=== PATIENT | female | born 1935 | race Caucasian/White ===

== ENCOUNTER 2019-10-09 19:18 | Observation (INO) | payer MEDICARE, BC, SELFPAY ==
--- NOTE | ~2019-10-09 | US_ITS ---
EXAMINATION: US pelvic complete w TV DATE: 10/10/2019 12:08 INDICATION: Acute postmenopausal vaginal bleeding. TECHNIQUE: Multiple transabdominal sonographic images of the pelvis were obtained. COMPARISON: CT abdomen and pelvis 08/22/2016 FINDINGS: The uterus measures 5.5 x 2.3 x 3.1 cm. There is a 1.6 cm hypoechoic intramural fibroid. There is no free fluid in the pelvis. The endometrial complex measures 4 mm in thickness. The ovaries are not vis ualized. IMPRESSION: 1. Uterine fibroid. Reviewed, dictated and finalized at location A. IMPRESSION: 1. Uterine fibroid.
--- NOTE | ~2019-10-09 | US_ITS ---
EXAMINATION: US retroperitoneal comp DATE: 10/10/2019 12:08 INDICATION: Pyelonephritis. TECHNIQUE: Multiple ultrasound grayscale images of the kidneys were obtained. COMPARISON: None. FINDINGS: The right kidney measures 10.2 x 4.6 x 5.1 cm. The left kidney measures 11.8 x 5.4 x 5.4 cm. The kidn eys demonstrate normal parenchymal echogenicity. There are cysts in the kidneys measuring up to 5.0 c m on the left. There is no hydronephrosis. The bladder is normal. IMPRESSION: 1. Normal kidney sizes. No hydronephrosis. Reviewed, dictated and finalized at location A.
[2019-10-09 19:25] VITALS: BP 160/92; PULSE 93; RESP 15; TEMP 37.4; O2SAT 95
--- NOTE | 2019-10-09 19:33 | ED.GENADULT ---
HPI - General Adult General Chief complaint: Unspecified Stated complaint: rectal bleeding Mode of arrival: wheelchair Limitations: language barrier History of Present Illness HPI narrative: this 84-year-old was brought in by her family. She has a hx of CVA with expressive aphasia. The family states there was blood on her depends reported by the staff at the [facility]. Don and daughter states she has no history of rectal or vaginal bleeding. Review of the chart shows that she is status post CVA has hyperlipidemia hypertension GERD depression. MD complaint: this 84-year-old Related Data Home Medications Medication Instructions Recorded Confirmed aspirin 81 mg tablet,delayed 81 mg PO DAILY 07/04/19 10/09/19 release docusate sodium 100 mg capsule 100 mg PO DAILY 07/04/19 10/09/19 multivitamin 1 cap PO DAILY 07/04/19 10/09/19 Allergies Allergy/AdvReac Type Severity Reaction Status Date / Time No Known Allergies Allergy Verified 07/04/19 10:42 Review of Systems Review of Systems: Narrative: unable to obtain secondary to expressive aphasia. Family states they have not been in to see her over the last couple of months because of the COVID pandemic. Staff at the [facility] if not reported any problems or new symptoms. [facility] Past Medical History Medical History History of CVA with residual deficit Hyperlipidemia Social History Social History Smoking status: Never smoker Alcohol intake: never Substance use type: does not use Exam Narrative: Exam Narrative: Laying in bed no acute distress. She answers yah to all questions. She follows directions, putting index fingers of the left and the right hand to nose as instructed. Const: General: no acute distress HENMT: Other: Oropharynx is moist without re Eyes: Conjunctivae: conjunctivae normal Neck: Neck: no lymphadenopathy Other: supple Resp: Effort & Inspection: normal respiratory effort Auscultation: clear to auscultation bilaterally Cardio: Rate: regular rate Rhythm: regular rhythm Heart sounds: Murmur heart sound present Other: 2/6 mid systolic murmur GI: GI Palp: Yes Soft to palpation, No Tenderness to palpation present (GI), No Guarding due to palpation present (GI) and No Rigid due to palpation : Other: Dried blood along the labia majorae. Examined in the presence of the nurse. No mass felt in her vagina; no blood on the glove. No perianal blood. Digital rectal exam without masses. No blood on the glove. No palpable abdominal masses Skin: General skin exam: normal color Rashes: no rashes Extrem: General: normal to inspection and no edema Course Vital Signs Vital signs: Vital Signs Temperature 37.4 C 10/09/19 19:25 Pulse Rate 93 10/09/19 19:25 Respiratory Rate 15 10/09/19 19:25 Blood Pressure 160/92 H 10/09/19 19:25 Pulse Oximetry 95 10/09/19 19:25 Temperature 36.7 C 10/10/19 07:33 Pulse Rate 72 10/10/19 07:33 Respiratory Rate 14 10/10/19 07:33 Blood Pressure 154/82 H 10/10/19 07:33 Pulse Oximetry 96 10/10/19 07:33 Medical Decision Making MDM Narrative Medical decision making narrative: Temperature 37.4?., WBC 10.4. Staffing at the assisted care facility is not capable of monitoring patient's status. Family request patient be brought in for observation. Will monitor for any evidence pyelonephritis as well as further bleeding in the vulval rectal area. Vital Signs Vital Signs: Vital Signs Temperature 37.4 C 10/09/19 19:25 Pulse Rate 93 10/09/19 19:25 Respiratory Rate 15 10/09/19 19:25 Blood Pressure 160/92 H 10/09/19 19:25 Pulse Oximetry 95 10/09/19 19:25 Temperature 36.7 C 10/10/19 07:33 Pulse Rate 72 10/10/19 07:33 Respiratory Rate 14 10/10/19 07:33 Blood Pressure 154/82 H 10/10/19 07:33 Pulse Oximetry 96 10/10/19 07:33
[2019-10-09 20:01] LABS: Hematocrit 35.8 % (35.0-42.0); Hemoglobin 11.9 g/dL (11.7-13.8); Mean Corpuscular HGB Conc 33.2 g/dL (32.0-36.0); Mean Corpuscular Hemoglobin 31.2 pg (27.0-31.0); Mean Corpuscular Volume 93.7 fL (78.0-102.0); Mean Platelet Volume 9.2 fl (9.2-11.8); Platelet Count Result 182 K/mm3 (150-420); Red Blood Count 3.82 M/mm3 (4.20-5.40); Red Cell Distribution Width 14.4 % (11.6-14.4)
[2019-10-09 20:15] LABS: Add Urine Microscopic? YES; Appearance Urine Cloudy (Clear); Bilirubin Urine Negative (Negative); Blood Urine 1+ (Negative); Color Urine Straw (Yellow); Glucose Urine UA Negative (Negative); Ketones Urine Negative (Negative); Leukocyte Esterase Ur 3+ LEU/UL (Negative); Nitrate Urine Negative (Negative); Protein Urine Trace (Negative); Urobilinogen Urine 0.2 mg/dL (0.2-1.0)
[2019-10-09 20:19] LABS: Prothrombin Time 10.2 Seconds (9.64-11.0)
[2019-10-09 20:21] LABS: WBC Urine >75 /hpf (0-3)
[2019-10-09 20:21] LABS: Alanine Aminotransferase 26 U/L (14-59); Albumin Level 3.3 g/dL (3.4-5.0); Alkaline Phosphatase 84 U/L (46-116); Aspartate Amino Transferase 18 U/L (15-37); Bilirubin,Total 0.2 mg/dL (0.00-1.00); Blood Urea Nitrogen 29 mg/dL (7-18); Calcium 8.9 mg/dL (8.5-10.1); Carbon Dioxide 31 mmol/L (21-32); Chloride 106 mmol/L (98-108); Estimated Glomerular Filt Rate 50; Glucose 118 mg/dL (70-99); Osmolality Calculated 302 mOsm/kg (285-295); Partial Thromboplastin Time 24.6 SEC (22.3-31.6); Sodium 143 mmol/L (136-145); Total Protein 6.5 g/dL (6.4-8.2)
[2019-10-09 20:22] LABS: Bacteria Urine 3+ /hpf; Mucus Urine None seen /lpf; Squamous Epithelial Cell Urine None seen /hpf (Few); WBC Clumps Urine Present /hpf
[2019-10-09 20:23] LABS: Lactic Acid 1.3 mmol/L (0.4-2.0)
[2019-10-09 20:36] LABS: Occult Blood Negative (Negative)
[2019-10-09 21:00] VITALS: BP 146/83; PULSE 80; O2SAT 94
[2019-10-09 21:30] VITALS: BP 157/81; PULSE 87; TEMP 37.2; O2SAT 94
--- NOTE | 2019-10-09 21:55 | PC.NURSE ---
Patient arrived from ER by stretcher. transfers with assist of 1. Has expressive aphasia from CVA. some weakness noticed on right in side-greater in RLL. oriented to self. Able to drink without assistance. Call light in reach. demonstrated call light use. bed alarm set as precaution.
[2019-10-09] MEDS: ATORVASTATIN 40 MG TABLET PO (22:08)
[2019-10-09 22:13] VITALS: BMI 21.5
[2019-10-09 22:16] VITALS: BP 174/77; PULSE 83; RESP 18; TEMP 36.6; O2SAT 96
--- NOTE | 2019-10-09 22:25 | PC.NURSE ---
Patient continues to have small amount of blood in her depends. Pain level 0 on FLACC.
--- NOTE | 2019-10-09 23:39 | PC.NURSE ---
Patient indicated she had to use the toilet. Small amount of blood present in depends including small blood clot. was able to speak slowly. used wheeled walker and gait belt for ambulation
[2019-10-10] VITALS: BP 137/61; PULSE 66; RESP 16; TEMP 36.6; O2SAT 93
--- NOTE | 2019-10-10 00:29 | PC.NURSE ---
Patient appears to be resting at this time. pain level 0 on FLACC.
--- NOTE | 2019-10-10 01:30 | PC.NURSE ---
Patient standing in hallway. Bed alarm was not sounding. Assisted patient to toilet. Had small BM and voided dark yellow urine. Assisted back to bed. Bed alarm on
--- NOTE | 2019-10-10 02:32 | PC.NURSE ---
Patient in bed. Bed alarm checked. pain 0 on FLACC.
[2019-10-10 04:00] VITALS: BP 130/66; PULSE 66; RESP 14; TEMP 36.5; O2SAT 94
[2019-10-10 06:10] LABS: Basophils Absolute Auto 0.04 K/mm3 (0.00-0.10); Basophils Percent Auto 0.4 % (0.0-1.0); Hematocrit 36.4 % (35.0-42.0); Immature Granulocyte Absolute 0.06 K/mm3 (0.00-0.00); Immature Granulocyte Percent A 0.6 % (0.0-0.0); Lymphocytes Percent Auto 19.2 % (18.0-42.0); Mean Corpuscular Hemoglobin 30.8 pg (27.0-31.0); Mean Corpuscular Volume 93.3 fL (78.0-102.0); Mean Platelet Volume 9.6 fl (9.2-11.8); Monocytes Absolute Auto 0.53 K/mm3 (0.10-0.90); Monocytes Percent Auto 5.1 % (2.0-11.0); Neutrophils Absolute Auto 7.7 K/mm3 (1.7-7.2); Neutrophils Percent Auto 73.7 % (50.0-70.0); Platelet Count Result 179 K/mm3 (150-420); Red Cell Distribution Width 14.2 % (11.6-14.4); White Blood Count 10.4 K/mm3 (4.8-10.8)
[2019-10-10 07:33] VITALS: BP 154/82; PULSE 72; RESP 14; TEMP 36.7; O2SAT 96
[2019-10-10] MEDS: FLUOXETINE HCL 10 MG CAPSULE 20 MG PO (08:11)
[2019-10-10] MEDS: MULTIVITAMINS THERAPEUTIC TAB (*BKC) 1 TABLET PO (08:11)
[2019-10-10] MEDS: ENOXAPARIN 40 MG/0.4 ML SYRINGE SUB-Q (08:11)
[2019-10-10] MEDS: PANTOPRAZOLE 40 MG TABLET PO (08:12)
[2019-10-10] MEDS: ASPIRIN 81 MG ENTERIC TABLET PO (08:13)
[2019-10-10] MEDS: DOCUSATE SODIUM 100 MG CAPSULE PO (08:13)
[2019-10-10 09:44] LABS: Thyroid Stimulating Hormone Reflex 3.37 u/IU/mL (0.36-3.74)
[2019-10-10 12:00] VITALS: BP 136/80; PULSE 72; RESP 14; TEMP 36.6; O2SAT 96
[2019-10-10 12:28] VITALS: BP 136/80; PULSE 72; RESP 14; TEMP 36.6; O2SAT 96
[2019-10-10 12:29] VITALS: BP 139/88; PULSE 78; RESP 18; O2SAT 97
--- NOTE | 2019-10-10 12:36 | PM.IMHP ---
H&P: HPI History of Present Illness Chief complaint: UTI Narrative: Tawana Bocanegra is a 84 year old female brought in to the ER yesterday early evening. The family states that there has been blood on her depends incontinence diapers that was reported by the staff at [facility]. her family denies any history of rectal or vaginal bleeding in the past. When I spoke with her brother Yrn today, he denied Tawana having any past abdominal surgeries or bowel surgeries or hysterectomy or any other abdominal or gynecological surgeries or concerns. She does take an 81 mg of aspirin at home , 40 mg of pantoprazole, as well as 40 mg of atorvastatin. I did examine her Depends myself at the time of my physical examination of the patient. She is having anywhere from 1-4 tbsp of bright red blood VAGINAL output with each Depend change , no clots noted on the 2 depends diapers that I did examine. Since the patient is verbally unable to communicate, and she has been independent in toileting, it is difficult to know when exactly this bleeding started; but since they do assist her with standby help at her daily showers and likely has been recent. I did call her brother Peterson today who is also her POA. He did inform me that a week ago she had fallen on her kitchen floor, the [facility] staff had telephoned him to inform him of fall and said that they had checked her out and everything seemed okay. Her vital signs have been stable since her admission. I have ordered orthostatic blood pressures to be checked. We are checking a CBC and CMP. Her hemoglobin is 12 and her hematocrit is 36, her platelets are 179, her WBC is 10.4 today. There is no visible signs or symptoms that Tawana is having any pain, during my exam with palpation to the pelvic area and the abdominal area, nor with ambulation. no fevers since her admission, no chills, no wounds, no odor vaginally or orally, and no sign or symptom of pain when she is urinating or having a bowel movement. 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 She attempts to answer your questions with yes no responses and with sentences, but the responses are consistently yes with both myself and other staff noticing that she never responds and never seems to shake her head no to our questions. I have witnessed this patient ambulate herself to the bathroom using her walker, and she does pretty well. She is a resident of the [facility], is reportedly independent, uses her walker routinely and appropriately, toilets herself, feed herself after the assisted living staff has cut up the meat, ambulates throughout the hallways there while wearing her mask appropriately, showers and dresses herself independently with standby assistance only, and will get staff to help her if she has any difficulty in her apartment. I did complete a pelvic exam, there was no sign of trauma, no lacerations or small tears or localized bleeding or ulcerations or masses. There was blood of mild amount in her vagina, that did appear to be originating from superior uterus region. The vaginal epithelium was pink in color, appropriately moist, without patchy erythema or petechiae or localized bleeding, no discharge was noted, no redness or dry patches noted. There was pubic hair present but scarce in nature. There was no cyst, no polyps, no fibroids, no ulcerations noted with my exam. Awaiting the results of her abdominal as well as transvaginal pelvic ultrasounds. Review of Systems Review of Systems: All systems reviewed & are unremarkable except as noted in HPI and below ROS unobtainable: Yes unobtainable due to medical condition Constitutional: Constitutional: Reports as per HPI Eyes: Eyes: Reports as per HPI ENT: Reports as per HPI, Reports Edith
[2019-10-10] MEDS: CIPROFLOXACIN 500 MG TAB PO (14:27)
--- NOTE | 2019-10-10 14:54 | PM.DS ---
DS: Discharge Diagnosis Discharge Diagnosis (1) PMB (postmenopausal bleeding): Code(s): N95.0 - Postmenopausal bleeding Status: Acute Assessment and Plan: PostMenopausal Bleeding (PMB) (unexpected vaginal or uterine bleeding) Differential diagnoses includes: endometrial carcinoma, atrophy of the vaginal mucosa or endometrium, endometrial hyperplasia, polyps, fibroids, uterine tumors, ovarian or fallopian tube cancer, cervical or vaginal cancer. Today's US pelvic complete w TV shows the uterus measures 5.5 x 2.3 x 3.1 cm. There is a 1.6 cm hypoechoic intramural uterine fibroid. There is no free fluid in the pelvis. The endometrial complex measures 4 mm in thickness. The ovaries are not visualized. - she is not complaining of any pain nor does she appear to have any pain signs or symptoms. - Her bleeding is mild in nature and does not appear to be affecting her hemodynamics. Her vital signs are stable including her blood pressures and heart rate, her hemoglobin and hematocrit remained stable, she is not weak but is able to get around very easily. - I recommend an OBGYN Eval. consultation and examination on an outpatient basis, to be completed in the next 1 to 10 days to decide on her best treatment options. - An endometrial biopsy may be recommended due to persistent bleeding and the fact that her endometrial lining is 4 mm in thickness - she should follow advise of her PRINCIPAL ADMINISTRATIVE CLERK. - Cervical cancer screening and PAP may also be recommended due to her retaining her cervix and uterus combined with her significant aphasia and inability to communicate any concerns to providers- she should follow advise of her PRINCIPAL ADMINISTRATIVE CLERK. - stable Hgb/Hct/Platelets, stable BP and HR, minimal to mild mild bleeding less than 1 tablespoon on each Depends today. (2) CVA, old, aphasia: Code(s): I69.320 - Aphasia following cerebral infarction Status: Acute Assessment and Plan: CVA with Expressive aphasia History -contniue DME use -continue exercises and therapies at home -continue getting assistance when needed -use shower chair -continue hands on assistance with toileting/dressing/bathing/cutting up foods - Continue home medications including 81 mg aspirin, 40 mg at tore of a statin, Colace, pantoprazole, multivitamin, fluoxetine -doing well and maintaining quite a bit of her independence at her assisted living facility (3) Urinary tract infection: Qualifiers: Hematuria presence: with hematuria Urinary tract infection type: site unspecified Qualified Code(s): N39.0 - Urinary tract infection, site not specified; R31.9 - Hematuria, unspecified Code(s): N39.0 - Urinary tract infection, site not specified Status: Acute Assessment and Plan: UA 3+ bacteria, 3+leuk, 1+ blood. urine and blood cultures pending. recevied IV rocephin In the ER yesterday evening her ultrasound shows no sign of pyelo or hydronephrosis will treat her for an uncomplicated UTI discharge on oral antibiotic, started her oral dose of Cipro this afternoon, will continue it for the next 2 days for total of 4 days of antibiotics, 3 of which include Cipro she will follow-up with her PCP 1 week from today I have instructed her to get blood and urine culture results from her PCP office DS: Summary Time Spent with Patient Time attestation: Total time spent providing and/or coordinating discharge services:>90 min Exam Narrative: Exam Narrative: Laying in bed no acute distress. She answers yah to all questions. She follows directions, putting index fingers of the left and the right hand to nose as instructed. Const: General: comfortable and no acute distress; No confusion or patient obtunded Orientation/consciousness: oriented to person, oriented to place, No confusion and No patient obtunded HENMT: General nose exam: Normal nares present and no epistaxis Mouth: Yes moist mucous membranes Other: Oropharynx is moist without re E
--- NOTE | 2019-10-10 15:48 | PC.NURSE ---
Family here to transport patient back to [facility] via family car. Patient assisted into car without difficulty. Discharge information reviewed with son. Son states understanding.
--- NOTE | 2019-10-10 22:34 | PM.EVENT ---
Event Note Event Note Event Note: Patient appears comfortable. Unable to give significant history. Mucous membranes are moist, regular rate rhythm without murmur rub or gallop. Lungs are clear to auscultation bilaterally. Abdomen is soft nontender. Extremities are warm dry pink with symmetric pulses. Discharge on oral antibiotics for UTI and OB Gyne follow-up to address vaginal bleeding issue. I have examined the patient and reviewed the chart. I discussed the patient's care with A Daniel SANTIAGO and agree with her assessment plan.
[2019-10-13 06:41] LABS: LH 38.9 mIU/mL (***); Progesterone <0.2 ng/mL (***)
[2019-10-14 04:51] LABS: FSH 97.6 mIU/mL (***)
[2019-10-14 21:16] LABS: Estrogen 103.1 pg/mL
== END 2019-10-10 15:40 ==
LOC: CHSED 19:22 → CHS2ND 21:19
PROVIDERS: Nurse Practitioner; Admitting Provider Family Medicine; Emergency Provider Family Medicine; PCP Family Medicine; Visit Provider Family Medicine
DX: N95.0 Postmenopausal bleeding (principal); D25.1 Intramural leiomyoma of uterus; N39.0 Urinary tract infection, site not specified; I69.320 Aphasia following cerebral infarction; I69.351 Hemiplegia and hemiparesis following cerebral infarction affecting right dominant side; I10 Essential (primary) hypertension; E78.5 Hyperlipidemia, unspecified; K21.9 Gastro-esophageal reflux disease without esophagitis; F32.9 Major depressive disorder, single episode, unspecified
CPT/HCPCS: 36415; 76770; 76830; 76856; 80053; 81001; 82272; 82672; 83001; 83002; 83605; 84144; 84443; 85025; 85027; 85610; 85730; 87040; 87086; 96365; 96372; 97161; 97165; 99283; 99285; A9270; G0378; J0696; J1650

== ENCOUNTER 2020-11-06 17:47 | Emergency (ER) | payer MEDICARE, BC, SELFPAY ==
[2020-11-06] VITALS (10 sets, daily range): BP systolic 163–174; BP diastolic 70–80; PULSE 65–75; RESP 14–20; TEMP 36.5; O2SAT 96–100
--- NOTE | ~2020-11-06 | CT_ITS ---
EXAMINATION: CT cervical spine wo con EXAM DATE: 11/06/2020 19:14 INDICATION: Fall, head injury. On blood thinners. TECHNIQUE: Spiral CT of the cervical spine was performed without contrast. Axial images were reviewe d. Coronal and sagittal reformatted images cervical spine were also reviewed. The dose-length produc t (DLP) for this examination was 106.29 mGy-cm. The exposure was tailored according to patient size (auto mA exposure control), and iterative reconstruction (ASIR) was used as additional dose reduction technique. Comparison is made to prior examination from 08/22/2016. FINDINGS: There is no evidence of acute cervical fracture. The odontoid process is intact. Pre-dens space is normal. Prevertebral soft tissue is normal. There are no soft tissue abnormalities identi fied. There is no disc space widening or traumatic vertebral body subluxation suspected. There is o sseous fusion of the C6-T1 vertebral bodies, severe disc disease at C5-6. Some advanced arthropathy. A detailed level by level evaluation of spondylosis can be added as addendum if requested. 1. IMPRESSION: Spondylosis. No acute cervical findings. Reviewed, dictated and finalized at location A.
--- NOTE | ~2020-11-06 | XR_ITS ---
EXAMINATION: XR knee RT min 4V EXAM DATE: 11/06/2020 18:56 INDICATION: Fall, abrasions. TECHNIQUE: Right knee frontal, crosstable lateral, orthogonal oblique projections for interpretation . Comparison is made to prior examination from 03/01/2019. FINDINGS: There are no acute fractures or dislocations identified. There is no subcutaneous gas. Mi ld vascular calcifications, arteriosclerosis. There are no radiopaque foreign bodies. IMPRESSION: 1. XR knee RT min 4V exam without acute osseous findings. Reviewed, dictated and finalized at location A.
--- NOTE | ~2020-11-06 | XR_ITS ---
EXAMINATION: XR hip RT 2V w AP pelvis EXAM DATE: 11/06/2020 18:56 INDICATION: Fall, abrasions. History stroke. TECHNIQUE: Right hip frontal, crosstable lateral projections for interpretation. Frontal projection p kezia. Comparison is made to prior examination from 03/01/2019. FINDINGS: There is right hip replacement hardware in expected position. No osseous or hardware fractu re. Scattered vascular calcifications. The pelvis is intact. Mild left hip primary osteoarthritis. IMPRESSION: 1. Intact right hip arthroplasty. Reviewed, dictated and finalized at location A.
--- NOTE | ~2020-11-06 | XR_ITS ---
EXAMINATION: XR ankle RT min 3V EXAM DATE: 11/06/2020 18:57 INDICATION: GLF, History of stroke. Right ankle pain. TECHNIQUE: Right ankle frontal, lateral and oblique projections obtained and reviewed. Comparison is made to prior examination from 12/01/2016. FINDINGS: Previously seen right fibular intra-articular fracture has healed. There are no acute / fra ctures or dislocations identified. There is no subcutaneous gas. The soft tissue is unremarkable. There are no radiopaque foreign bodies. IMPRESSION: No acute osseous findings. Reviewed, dictated and finalized at location A. IMPRESSION: No acute osseous findings.
--- NOTE | ~2020-11-06 | CT_ITS ---
EXAMINATION: CT brain wo [facility] EXAM DATE: 11/06/2020 19:14 INDICATION: Fall, head injury. On blood thinners. TECHNIQUE: Spiral CT of the head was performed without contrast. Axial, coronal and sagittal images were reviewed. The dose-length product (DLP) for this examination was 106.29 mGy-cm. The exposure w as tailored according to patient size, and iterative reconstruction (ASIR) was used as additional dos e reduction technique. Comparison is made to prior examination from 03/01/2019. FINDINGS: There is large left hemispheric cerebral infarction unchanged compared to prior study. Some ex vacuo dilation of the left lateral ventricle. There is an old right thalamic lacunar infarction, but new compared to previous examination. There is moderate microangiopathy. There is a 1 cm meningio ma along the left side of the tentorium unchanged. There is moderate cerebral atrophy. Several small old bilateral cerebellar hemispheric infarctions. No acute intracranial hemorrhage, obstructive hydro cephalus or brain mass. IMPRESSION: 1. No acute intracranial findings. 2. Old infarctions. 3. Senescent changes. 4. Small meningioma. Reviewed, dictated and finalized at location A.
--- NOTE | 2020-11-06 19:16 | ED.FALL ---
HPI - Fall General Chief Complaint: Fall Stated Complaint: FALL KNEE,ANKLE PAIN Source: EMS and RN notes reviewed Mode of arrival: EMS Limitations: physical limitation (aphasic from cva) and dementia History of Present Illness HPI Narrative: This is an 85 year old female with history of dementia who presents from longterm for evaluation of right knee and ankle pain s/p fall. Patient has dementia and she is unable to give history. According to longterm, patient was able to stand without any complaints. She does have sign of head injury but it has been reported that she is on a blood thinner. Related Data Home Medications Medication Instructions Recorded Confirmed aspirin 81 mg tablet,delayed 81 mg PO DAILY 07/04/19 10/14/19 release docusate sodium 100 mg capsule 100 mg PO DAILY 07/04/19 10/14/19 multivitamin 1 cap PO DAILY 07/04/19 10/14/19 Allergies Allergy/AdvReac Type Severity Reaction Status Date / Time No Known Allergies Allergy Verified 10/14/19 13:01 Review of Systems Review of Systems: ROS unobtainable: Yes other (dementia) [facility] Past Medical History Medical History (Updated 11/06/20 @ 19:37 by Katie Frazier MD) History of CVA with residual deficit Hyperlipidemia Family History Family History Other Cerebrovascular accident Social History Social History Smoking status: Never smoker Alcohol intake: never Substance use type: does not use Exam Const: General: no acute distress and alert HENMT: Head: normocephalic and atraumatic Mouth: Yes Normal oral and palatal mucosa present, Yes lip normal, Yes oropharynx normal and Yes moist mucous membranes Throat: posterior oropharynx normal, tonsils normal and uvula midline Eyes: EOM: EOMs intact bilaterally Chest: Chest palpation & inspection: normal inspection of the chest Resp: Effort & Inspection: normal respiratory effort and no retractions Auscultation: clear to auscultation bilaterally Cardio: Rate: regular rate Rhythm: regular rhythm Heart sounds: no murmurs GI: GI Palp: Yes Soft to palpation, No Tenderness to palpation present (GI) and No Guarding due to palpation present (GI) Auscultation: normal bowel sounds Skin: Other: abrasion to right knee and right ankle, no swelling or deformity Neuro: Other: no grimacing or sign of pain with movement of her legs, Course Reevaluation(s) Reevaluation #1: PAtient's family is at bedside. I reviewed ER course. No other concerns. Patient will be discharged back to [facility] Date: 11/06/20 Time: 19:35 Vital Signs Vital signs: Vital Signs Temperature 97.7 F 11/06/20 17:47 Pulse Rate 75 11/06/20 17:47 Respiratory Rate 14 11/06/20 17:47 Pulse Oximetry 96 11/06/20 17:47 Temperature 97.7 F 11/06/20 17:47 Pulse Rate 69 11/06/20 19:57 Respiratory Rate 16 11/06/20 19:57 Blood Pressure 174/80 H 11/06/20 19:57 Pulse Oximetry 97 11/06/20 19:57 MDM - Fall Imaging Data Radiologist's impression: ITS Impressions Hip/Pelvis X-Ray 11/06/20 19:02 IMPRESSION: 1. Intact right hip arthroplasty. Knee X-Ray 11/06/20 19:05 IMPRESSION: 1. XR knee RT min 4V exam without acute osseous findings. Ankle X-Ray 11/06/20 19:12 IMPRESSION: No acute osseous findings. Head CT 11/06/20 19:20 IMPRESSION: 1. No acute intracranial findings. 2. Old infarctions. 3. Senescent changes. 4. Small meningioma. Discharge Plan Discharge Clinical Impression: Abrasion of knee, right, Abrasion of ankle, right Patient Disposition: [facility] Living Condition: Stable Instructions: Antibiotic Form, Contusion in Adults (ED), Abrasion (ED) Prescriptions: No Action ciprofloxacin HCl 500 mg Tablet 500 mg PO DAILY 2 Days Qty: 2 RF: 0 multivitamin Capsul
--- NOTE | 2020-11-06 19:57 | PC.NURSE ---
made contact with [facility] and [facility] to transfer pt to [facility] in [place]. [facility] and [facility] both declined. [facility] accepted with eta 2030
--- NOTE | 2020-11-06 20:23 | PC.NURSE ---
hussain has arrived and is aware that she is going to [facility]
== END 2020-11-06 20:34 ==
PROVIDERS: Emergency Provider General Practice
DX: S80.211A Abrasion, right knee, initial encounter (principal); S90.511A Abrasion, right ankle, initial encounter; F03.90 Unspecified dementia, unspecified severity, without behavioral disturbance, psychotic disturbance, mood disturbance, and anxiety; Z79.82 Long term (current) use of aspirin; E78.5 Hyperlipidemia, unspecified; Z96.641 Presence of right artificial hip joint; D32.0 Benign neoplasm of cerebral meninges; M47.812 Spondylosis without myelopathy or radiculopathy, cervical region
CPT/HCPCS: 70450; 72125; 73502; 73564; 73610; 99284

== ENCOUNTER 2021-01-03 12:24 | Emergency (ER) | payer MEDICARE, BC, SELFPAY ==
[2021-01-03] VITALS (20 sets, daily range): BP systolic 129–178; BP diastolic 68–88; PULSE 66–82; RESP 13–21; TEMP 36.9; O2SAT 96–99
--- NOTE | ~2021-01-03 | XR_ITS ---
EXAMINATION: XR hip RT min 3V w AP pelvis DATE: 01/03/2021 12:59 INDICATION: Right hip pain. Fall. TECHNIQUE: An anteroposterior view of the pelvis and 3 views of right hip were obtained. COMPARISON: Pelvis and right hip radiographs 11/06/2020 FINDINGS: There is a bipolar right hip hemiarthroplasty in near-anatomic alignment. No lucencies to s uggest loosening or infection. There is a periprosthetic fracture of greater trochanter of proximal r ight femur. The distal fracture fragment demonstrates 6 mm medial displacement. There is mild left hi p osteoarthritis. There is severe lumbar spondylosis. IMPRESSION: 1. Periprosthetic fracture of proximal right femur involving the greater trochanter. Reviewed, dictated and finalized at location A. IMPRESSION: 1. Periprosthetic fracture of proximal right femur involving the greater trocha nter.
--- NOTE | ~2021-01-03 | XR_ITS ---
EXAMINATION: XR chest 1V EXAM DATE: 01/03/2021 12:59 INDICATION: Recent fall. TECHNIQUE: Portable AP frontal chest x-ray was obtained. There is no prior study for comparison. FINDINGS: There is large sliding gastroesophageal hiatal hernia. No confluent consolidation, pneumoth orax or pleural effusion suspected. Cardiomegaly. Some scattered postinfectious residua. There are dwaine ny degenerative changes. IMPRESSION: 1. No acute cardiopulmonary findings. 2. Cardiomegaly. 3. Large hiatal hernia. Reviewed, dictated and finalized at location A.
--- NOTE | ~2021-01-03 | CT_ITS ---
EXAMINATION: CT brain wo con DATE: 01/03/2021 14:22 INDICATION: Fall. Patient nonverbal. TECHNIQUE: Computed tomography (CT) of the head was performed without intravenous contrast. Sagittal and coronal reconstructions were performed. The mA was adjusted according to patient size. Iterative reconstruction technique was employed. The dose-length product was 681.00 mGy-cm. COMPARISON: head CT dated 11/06/2020 FINDINGS: No fracture. No acute intracranial hemorrhage, acute infarction or abnormal extra axial fluid collect ion. Chronic large infarct involving significant portions of the left cerebral hemisphere relatively sparing the left temporal lobe. Small old lacunar infarcts at the right thalamus and bilateral cerebe llar hemispheres. There is additional moderate scattered white matter hypoattenuation consistent with chronic small vessel ischemic disease. No interval change in a dural based 11 x 7 x 4 mm lenticular hyperdense meningioma along the caudal aspect of the left side of the tentorium. No other masses iden tified. Symmetric prominence of the sulci and ventricles consistent with moderate likely age-related diffuse cerebral volume loss. The orbits, paranasal sinuses and mastoid air cells are normal. Intracr anial calcified cerebral atherosclerosis is noted. IMPRESSION: 1. No fracture or acute intracranial process. 2. Stable appearance of old infarcts which involve large portions of the left cerebellar hemisphere. 3. Unchanged small meningioma along the left tentorium. 4. Age-related changes including moderate diffuse volume loss and moderate scattered white matter hyp oattenuation consistent with chronic small vessel ischemic disease. Reviewed, dictated and finalized at location B. IMPRESSION: 1. No fracture or acute intracranial process. 2. Stable appearance of old infarcts which involve large portions of the left c erebellar hemisphere. 3. Unchanged small meningioma along the left tentorium. 4. Age-related changes including moderate diffuse volume loss and moderate scat tered white matter hypoattenuation consistent with chronic small vessel ischemi c disease.
--- NOTE | ~2021-01-03 | CT_ITS ---
EXAMINATION: CT cervical spine wo [facility] EXAM DATE: 01/03/2021 14:22 INDICATION: Fall, nonverbal. TECHNIQUE: Spiral CT of the cervical spine was performed without contrast. Axial images were reviewe d. Coronal and sagittal reformatted images cervical spine were also reviewed. The dose-length produc t (DLP) for this examination was 144.08 mGy-cm. The exposure was tailored according to patient size (auto mA exposure control), and iterative reconstruction (ASIR) was used as additional dose reduction technique. Comparison is made to prior examination from 08/22/2016. FINDINGS: There is old left occipital lobe infarction. There is no evidence of acute cervical fractu re. The odontoid process is intact. Pre-dens space is normal. Prevertebral soft tissue is normal. There are no soft tissue abnormalities identified. There is no disc space widening or traumatic ming tebral body subluxation suspected. Osseous fusion of the C6-T1 vertebral bodies. Moderate to severe disc disease at C5-6. Left thyroid lobectomy. A detailed level by level evaluation of spondylosis ca n be added as addendum if requested. IMPRESSION: 1. No acute cervical fracture. 2. Cervical spondylosis. Reviewed, dictated and finalized at location A.
--- NOTE | 2021-01-03 12:27 | ECG_ITS ---
Measurements Intervals [place] Rate: 72 P: 20 NH: 161 QRS: -1 QRSD: 104 T: 16 QT: 388 QTc: 425 Interpretive Statements SINUS RHYTHM INCOMPLETE RIGHT BUNDLE BRANCH BLOCK BASELINE ARTIFACT- I, II, AVR, AVL, V5 BORDERLINE ECG Electronically Signed On 01-03-2021 13:38:17 CDT by Jonathan Schmidt D.O.
[2021-01-03 13:29] LABS: Basophils Percent Auto 0.4 % (0.2-1.2); Eosinophils Absolute Auto 0.1 K/mm3 (0-0.3); Eosinophils Percent Auto 0.9 % (0-4.4); Hematocrit 37.1 % (37.0-47.0); Hemoglobin 11.8 g/dL (12.0-15.0); Immature Granulocyte Absolute 0.03 K/mm3 (0.00-0.031); Immature Granulocyte Percent A 0.3 % (0-0.5); Lymphocytes Percent Auto 15.2 % (18.3-44.2); Mean Corpuscular HGB Conc 31.8 g/dl (32-36); Mean Corpuscular Hemoglobin 29.8 pg (26-34); Mean Corpuscular Volume 93.7 fl (80-100); Mean Platelet Volume 9.1 fl (7.4-10.4); Monocytes Absolute Auto 0.4 K/mm3 (0.1-0.6); Monocytes Percent Auto 4.5 % (2.6-8.5); Neutrophils Absolute Auto 7.8 K/mm3 (1.3-6.7); Neutrophils Percent Auto 78.7 % (45.5-73.1); Platelet Count Result 247 k/mm3 (150-375); Red Blood Count 3.96 M/mm3 (4.2-5.4); Red Cell Distribution Width 13.8 % (11.5-14.5); White Blood Count 9.9 K/mm3 (4.5-10.0)
[2021-01-03 13:39] LABS: Prothrombin Time 13.1 Seconds (11.1-14.7)
[2021-01-03 13:47] LABS: Alanine Aminotransferase 16 U/L (4-35); Albumin Level 3.4 g/dL (3.5-5.1); Alkaline Phosphatase 234 U/L (38-126); Anion Gap 6 mmol/L (8-16); Aspartate Amino Transferase 24 U/L (14-36); Bilirubin,Total 0.5 mg/dL (0.2-1.3); Blood Urea Nitrogen 17 mg/dL (7-17); Calcium 8.7 mg/dL (8.4-10.2); Carbon Dioxide 27 mmol/L (22-30); Chloride 103 mmol/L (98-107); Estimated CRCL calculation 44 ml/min; Estimated Glomerular Filt Rate > 60; Glucose 113 mg/dL (65-110); Potassium 3.8 mmol/L (3.4-5.0); Sodium 136 mmol/L (137-145)
--- NOTE | 2021-01-03 14:00 | ED.GENADULT ---
HPI - General Adult General Chief complaint: Unspecified Stated complaint: FALL / HIP FRACTURE Time Seen by Provider: 01/03/21 12:27 Source: family, EMS and RN notes reviewed Mode of arrival: EMS Limitations: dementia History of Present Illness HPI narrative: Patient is 85 years old white female brought to the emergency room by ambulance from retirement because of possible right hip fracture. Patient brother is telling me that patient been having trouble walking for 1 week, history of multiple falls. The staff noticed right foot swelling lately, been seen by a data reduction technician yesterday for right foot swelling, without any significant diagnosis. X-ray right hip yesterday showed fracture. History of dementia, patient is nonverbal, normally uses a walker, over the last week been bedridden.. The retirement report indicated that patient have no fever, chills, nausea, vomiting, chest pain, shortness of breath, back pain. Patient just transferred to a retirement 1 week ago Related Data Home Medications Medication Instructions Recorded Confirmed aspirin 81 mg tablet,delayed 81 mg PO DAILY 07/04/19 01/03/21 release multivitamin 1 cap PO DAILY 07/04/19 01/03/21 acetaminophen 500 mg PO QID PRN 01/03/21 01/03/21 Allergies Allergy/AdvReac Type Severity Reaction Status Date / Time No Known Allergies Allergy Verified 10/14/19 13:01 Review of Systems Review of Systems: ROS unobtainable: Yes unobtainable due to mental status PMFSH Past Medical History Medical History (Updated 01/03/21 @ 15:51 by Jennifer Grimaldo MD) History of CVA with residual deficit Hyperlipidemia Family History Family History Other Cerebrovascular accident Social History Social History Smoking status: Never smoker Alcohol intake: never Substance use type: does not use Gender identity (if verbalized by the patient): Female Exam Narrative: General appearance: Well-developed, well-nourished, laying down in bed does not look in pain or distress, brother at the bedside Skin: Normal color Head: Normocephalic, nontraumatic Eyes: Clear conjunctiva ENT: Oropharynx normal, ears normal, nose normal Neck: Supple, nontender Chest and respiratory: Airway patent, no respiratory distress, no accessory muscle use Heart: Regular rate/rhythm Abdomen: Soft, nontender, no organomegaly, quiet bowel sounds Vascular: Normal peripheral pulses, normal capillary refill. Musculoskeletal: Limited range of motion of right hip Neurologic: Patient is alert, disoriented x4 Course Course Emergency Course: Stable Consultations Consultation #1: Dr. Harrington No weightbearing on the right lower extremity, wheelchair for movement, Date: 01/03/21 Time: 14:22 Vital Signs Vital signs: Vital Signs Blood Pressure 152/83 H 01/03/21 12:31 Pulse Oximetry 99 01/03/21 12:31 Temperature 36.9 C 01/03/21 12:36 Pulse Rate 69 01/03/21 14:34 Respiratory Rate 17 01/03/21 14:34 Blood Pressure 139/84 01/03/21 13:00 Pulse Oximetry 99 01/03/21 13:30 Medical Decision Making MDM Narrative Medical decision making narrative: Right hip x-ray showed greater trochanteric fracture which is inoperable, discussed with Dr. Harrington. Patient will be discharged back to retirement to follow-up with Ortho as outpatient. Differential Diagnosis Differential Diagnosis: Closed head injury, cervical fracture, electrolyte imbalance, urinary tract infection, history of multiple falls Vital Signs Vital Signs: Vital Signs Blood Pressure 152/83 H 01/03/21 12:31 Pulse Oximetry 99 01/03/21
--- NOTE | 2021-01-03 16:24 | PC.NURSE ---
[facility] accepted retrun ETA20p Trip # [id number] Galileo Peralta and Erwin Valdivia declined return to [facility]
--- NOTE | 2021-01-03 18:04 | PC.NURSE ---
SPOKE TO [facility] AND INFORMED OF DEPT, ALSO MADE AWARE THAT XRAY REPORT INCLUDED IN DC PAPERWORK
== END 2021-01-03 18:06 ==
PROVIDERS: Emergency Provider Emergency Medicine; PCP Nurse Practitioner Family
DX: S72.114A Nondisplaced fracture of greater trochanter of right femur, initial encounter for closed fracture (principal); M97.01XA Periprosthetic fracture around internal prosthetic right hip joint, initial encounter; R29.6 Repeated falls; I51.7 Cardiomegaly; K44.9 Diaphragmatic hernia without obstruction or gangrene; M47.812 Spondylosis without myelopathy or radiculopathy, cervical region; Z79.82 Long term (current) use of aspirin; E78.5 Hyperlipidemia, unspecified; I69.90 Unspecified sequelae of unspecified cerebrovascular disease; W19.XXXA Unspecified fall, initial encounter
CPT/HCPCS: 36415; 70450; 71045; 72125; 73502; 80053; 85025; 85610; 85730; 86850; 86900; 86901; 93005; 96365; 96366; 99284; J0696

== ENCOUNTER 2021-03-01 16:31 | Emergency (ER) | payer MEDICARE, BC, SELFPAY ==
--- NOTE | ~2021-03-01 | XR_ITS ---
EXAMINATION: XR hip RT 2V w AP pelvis INDICATION: Right hip pain TECHNIQUE: AP view the pelvis and two views of the right hip are obtained. COMPARISON: 01/03/2021 FINDINGS: There are changes of right hip arthroplasty. No acute fracture is identified. There appears to be healing of the previously described periprosthetic fracture of the right femur involving the g reater trochanter. There is moderate osteoarthritis of the left hip. Calcified atherosclerosis is not ed. There are phleboliths of the pelvis. IMPRESSION: 1. Apparent interval healing of the previously described periprosthetic fracture of the right femur w ithout acute osseous abnormality identified. Reviewed, dictated and finalized at location A. IMPRESSION: 1. Apparent interval healing of the previously described periprosthetic fractur e of the right femur without acute osseous abnormality identified.
--- NOTE | ~2021-03-01 | CT_ITS ---
EXAMINATION: CT brain wo con INDICATION: Head injury COMPARISON: 01/03/2021 TECHNIQUE: Standard unenhanced head CT. The dose-length product (DLP) was 605.33 mGy-cm. The mA was a djusted according to patient size. Iterative reconstruction technique was employed. FINDINGS: There is no acute intraparenchymal hemorrhage. No a stable meningioma is again noted along the left tentorium. No evidence of acute infarction. There is chronic encephalomalacia in the distrib ution of the left middle cerebral artery. There is mild periventricular and subcortical hypodensity p robably related to small vessel ischemic disease. There is mild prominence of the sulci and ventricle s related to cerebral atrophy. Intracranial calcified cerebral atherosclerosis is noted. There are no extra-axial collections. There is no mass effect or midline shift. There is a right frontal scalp he matoma. There is mild mucosal thickening of the paranasal sinuses. IMPRESSION: 1. No acute intracranial abnormality. 2. Chronic findings as above. Reviewed, dictated and finalized at location A.
[2021-03-01 16:37] VITALS: BP 182/75; PULSE 78; RESP 18; TEMP 37.1; O2SAT 97
--- NOTE | 2021-03-01 17:18 | ED.FALL ---
HPI - Fall General Chief Complaint: Fall Stated Complaint: fall Time Seen by Provider: 03/01/21 16:58 Source: patient Mode of arrival: ambulatory Limitations: no limitations History of Present Illness HPI Narrative: Patient is an 85-year-old female sent here from residential after a ground-level fall. Per EMS patient did hit her head and her right hip. Patient has severe dementia, nonverbal, very poor historian Related Data Home Medications Medication Instructions Recorded Confirmed aspirin 81 mg tablet,delayed 81 mg PO DAILY 07/04/19 01/03/21 release multivitamin 1 cap PO DAILY 07/04/19 01/03/21 acetaminophen 500 mg PO QID PRN 01/03/21 01/03/21 Allergies Allergy/AdvReac Type Severity Reaction Status Date / Time No Known Allergies Allergy Verified 10/14/19 13:01 Review of Systems Review of Systems: ROS unobtainable: Yes unobtainable due to mental status and other (Dementia) [facility] Past Medical History Medical History (Updated 03/01/21 @ 18:31 by Marcus Carey MD) History of CVA with residual deficit Hyperlipidemia Family History Family History Other Cerebrovascular accident Social History Social History Smoking status: Never smoker Alcohol intake: never Substance use type: does not use Gender identity (if verbalized by the patient): Female Exam Const: General: no acute distress and alert Limitations: other limitations (Dementia, nonverbal) HENMT: Head: normal to inspection, normocephalic and atraumatic Ears: TM normal on the right and TM normal on the left General nose exam: Normal external nose present, Normal nares present and No nasal discharge present Face and sinus: normal facial exam Mouth: Yes Normal oral and palatal mucosa present, Yes lip normal, Yes tongue normal and Yes oropharynx normal Eyes: General: appearance normal, both eyes and all related structures Pupils: Equal, round and reactive pupils present EOM: EOMs intact bilaterally Neck: Neck: normal visual inspection Chest: Chest palpation & inspection: normal inspection of the chest Resp: Effort & Inspection: normal respiratory effort, no respiratory distress and not tachypneic Auscultation: clear to auscultation bilaterally, no crackles, no rales, no rhonchi and no wheezes Cardio: Rate: regular rate Rhythm: regular rhythm GI: Inspection: normal to inspection GI Palp: No abdominal tenderness, Yes Soft to palpation, No Tenderness to palpation present (GI), No Guarding due to palpation present (GI), No Rigid due to palpation and No Rebound tenderness present Auscultation: normal bowel sounds : General: Yes no CVA tenderness Back/Spine/Pelvis: Back: no CVA tenderness Skin: General skin exam: normal color, no rashes or lesions noted, elasticity normal and turgor normal Neuro: General: tone normal and moves all extremities Sensory Exam: No Sensory deficit (Neuro) Extrem: General: normal to inspection and capillary refill normal Psych: Appearance: grossly normal and well kempt Course Vital Signs Vital signs: Vital Signs Temperature 37.1 C 03/01/21 16:37 Pulse Rate 78 03/01/21 16:37 Respiratory Rate 18 03/01/21 16:37 Blood Pressure 182/75 H 03/01/21 16:37 Pulse Oximetry 97 03/01/21 16:37 Temperature 37.1 C 03/01/21 16:37 Pulse Rate 78 03/01/21 16:37 Respiratory Rate 18 03/01/21 16:37 Blood Pressure 182/75 H 03/01/21 16:37 Pulse Oximetry 97 03/01/21 16:37 Discharge Plan Discharge Clinical Impression: Fall in elderly patient Head injury Qualifiers: Encounter type: initial encounter Qualified Code(s): S09.90XA - Unspecified injury of head, initial encounter Contusion of hip, right Qualifiers: Encounter type: initial encounter Qualified Code(s): S70.01XA - Contusion of right hip, initial encounter Patient Disposition: NH Care Home/As
[2021-03-01 18:31] VITALS: BP 153/66; PULSE 67; RESP 18; O2SAT 97
[2021-03-01 19:39] VITALS: BP 162/67; PULSE 67; RESP 16; O2SAT 95
--- NOTE | 2021-03-01 19:58 | PC.NURSE ---
@194 called [facility] to request transport. ETA [phone] @1941 called [facility] to request transport. declined.
--- NOTE | 2021-03-01 20:00 | PC.NURSE ---
@ 1943 called [facility] to request transport. accepted @ 1956 cancelled Only EMS.
== END 2021-03-01 20:37 ==
LOC: ANHED 18:53
PROVIDERS: Emergency Provider Emergency Medicine; PCP Nurse Practitioner Family
DX: S09.90XA Unspecified injury of head, initial encounter (principal); S70.01XA Contusion of right hip, initial encounter; E78.5 Hyperlipidemia, unspecified; I69.90 Unspecified sequelae of unspecified cerebrovascular disease; W19.XXXA Unspecified fall, initial encounter
CPT/HCPCS: 70450; 73502; 99284

== ENCOUNTER 2021-07-09 19:04 | Emergency (ER) | payer MEDICARE, BC, SELFPAY ==
[2021-07-09] VITALS (17 sets, daily range): BP systolic 110–132; BP diastolic 57–68; PULSE 70–81; RESP 13–17; TEMP 36.5; O2SAT 96–100
--- NOTE | ~2021-07-09 | CT_ITS ---
EXAMINATION: CT brain wo con DATE: 07/09/2021 21:03 INDICATION: Fall. Head injury. Nonverbal. TECHNIQUE: Computed tomography (CT) of the head was performed without intravenous contrast. The mA wa s adjusted according to patient size. Iterative reconstruction technique was employed. Exam dose: 60 5.33 mGy-cm total exam DLP. COMPARISON: 03/01/2021 CT brain FINDINGS: There is extensive encephalomalacia of the left cerebral hemisphere involving much of the l eft middle cerebral artery distribution. Chronic right thalamic lacunar infarcts. There is nonspecific chronic diminished attenuation of the cerebral white matter, likely due to chron ic small vessel ischemic changes. There is central and cortical cerebral and cerebellar atrophy. Small chronic meningioma along the left tentorium. Otherwise no intracranial mass lesion or hemorrhag e, midline shift or mass effect effect or subdural or epidural hematoma is detected. No fracture or bone destruction of the cranial vault. There is minimal soft tissue thickening of the ethmoid air cells the paranasal sinuses and mastoid ai r cells are otherwise unremarkable. Mild right frontal cephalohematoma. No skull fracture or could or contrecoup intracranial injury is n oted. IMPRESSION: Right mild frontal cephalohematoma; no skull fracture or acute coup or contrecoup or oth er acute intracranial injury Reviewed, dictated and finalized at Location [facility]. Reviewed, dictated and finalized at location A. ING PAN TENDER IMPRESSION: Right mild frontal cephalohematoma; no skull fracture or acute cou p or contrecoup or other acute intracranial injury
--- NOTE | ~2021-07-09 | CT_ITS ---
EXAMINATION: CT cervical spine wo con DATE: 07/09/2021 21:03 INDICATION: Fall. Head and neck injury. TECHNIQUE: Computed tomography (CT) of the cervical spine was performed without intravenous contrast. Automated exposure control and iterative reconstruction technique were employed. Exam dose: 112.41 mGy-cm total exam DLP. COMPARISON: 01/03/2021 CT cervical spine FINDINGS: There is straightening of the cervical spine. C1 and C2 are normally aligned and the odontoid process is intact. No fracture or dislocation or lock ed facet or prevertebral soft tissue swelling. There is minimal anterolisthesis at C3-4. Mildly severe degenerative disease at C4-5. There is severe degenerative disc disease and prominent anterior posterior spurring at C5-6. There is fusion of C6-T1 vertebral bodies. There is fusion of the posterior elements at C7-T1 bilater ally. Degenerative disc disease in the upper thoracic spine. . IMPRESSION: Straightening of the cervical spine Minimal anterolisthesis at C3-4 Moderately severe degenerative disc disease at C4-5 and very severe degenerative disease at C5-6 Anterior fusion at C6-T1, posterior fusion at C7-T1 No fracture or dislocation Reviewed, dictated and finalized at Location [facility]. Reviewed, dictated and finalized at location A. 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
--- NOTE | 2021-07-09 20:56 | ED.FALL ---
HPI - Fall General Chief Complaint: Fall Stated Complaint: Fall Time Seen by Provider: 07/09/21 20:24 Source: family, EMS and RN notes reviewed History of Present Illness HPI Narrative: Patient presents after a fall. Patient lives in [facility] and had an unwitnessed fall. This time that she fell out of her wheelchair and struck her head on a pole. The event was heard and staff medically responded. Patient appeared to be acting like her usual self. They noted abrasion to her has a center the ER for evaluation. Patient is nonverbal at baseline Related Data Home Medications Medication Instructions Recorded Confirmed aspirin 81 mg tablet,delayed 81 mg PO DAILY 07/04/19 01/03/21 release multivitamin 1 cap PO DAILY 07/04/19 01/03/21 acetaminophen 500 mg PO QID PRN 01/03/21 01/03/21 Allergies Allergy/AdvReac Type Severity Reaction Status Date / Time No Known Allergies Allergy Verified 10/14/19 13:01 Review of Systems Review of Systems: ROS unobtainable: Yes unobtainable due to medical condition [facility] Past Medical History Medical History (Updated 07/09/21 @ 22:05 by Humberto Armendariz MD) History of CVA with residual deficit Hyperlipidemia Family History Family History Other Cerebrovascular accident Social History Social History Smoking status: Never smoker Alcohol intake: never Substance use type: does not use Gender identity (if verbalized by the patient): Female Exam Narrative: GENERAL: Well-appearing, well-nourished, and in no acute distress. HEAD: Normocephalic, superficial abrasion noted above the right orbit. EYES: PERRLA and EOMI. ENT: Nares clear, no rhinorrhea or epistaxis. Mucous membranes moist. TMs clear bilaterally NECK: Supple. No masses. No JVD CHEST: Clear to auscultation. No respiratory distress. No wheezes rales or rhonchi HEART: Regular rate and rhythm. No murmur heard. Normal peripheral pulses. ABDOMEN: Soft, nontender, nondistended, normal active bowel sounds. EXTREMITIES: No tenderness with palpation of the extremities SKIN: Warm, dry, no rash. NEURO: Patient tracking in the room movements appear intact alert. PSYCH: Normal mood and affect. Course Reevaluation(s) Reevaluation #1: Patient resting comfortably results reviewed with family. Family comfortable outpatient plan. Date: 07/09/21 Time: 22:03 Vital Signs Vital signs: Vital Signs Temperature 36.5 C 07/09/21 19:12 Pulse Rate 74 07/09/21 19:12 Respiratory Rate 16 07/09/21 19:12 Blood Pressure 132/63 07/09/21 19:12 Pulse Oximetry 98 07/09/21 19:12 Temperature 36.5 C 07/09/21 19:12 Pulse Rate 72 07/10/21 00:02 Respiratory Rate 15 07/10/21 00:02 Blood Pressure 117/56 L 07/10/21 00:01 Pulse Oximetry 99 07/09/21 22:46 MDM - Fall MDM Narrative Medical decision making narrative: H&P as above, vss, pt looks clinically well, exam with a nonfocal neurological exam and abrasion noted to the right forehead, labs clinically unremarkable, img with superficial hematoma no fractures intracranial hemorrhage, additional labs/img considered, symptomatic relief available as needed, on reevaluation pt continues to looks clinically well. Suspect mechanical fall, dns intracranial hemorrhage, fracture, cord compromise plan to tx/monitor as op w/ pcm f/u findings/plan discussed with pt, pt agree/comfortable with plan, return precautions given Lab Data Result diagrams: 07/09/21 21:15 07/09/21 21:15 Labs: Lab Results 07/09/21 07/09/21 Range/Units 21:15 21:15 WBC 10.7 H (4.5-10.0) K/mm3 RBC 3.65 L (4.2-5.4) M/mm3 Hgb 10.9 L (12.0-15.0) g/dL Hct 35.3 L (37.0-47.0) % MCV 96.7 (80-100) fl MCH 29.9 (26-34) pg MCHC 30.9 L (32-36) g/dl RDW 14.6 H (11.5-14.5) % Plt Count 180 (150-375) k/mm3 MPV 9.0
[2021-07-09 21:21] LABS: Basophils Percent Auto 0.3 % (0.2-1.2); Eosinophils Absolute Auto 0.1 K/mm3 (0-0.3); Eosinophils Percent Auto 0.8 % (0-4.4); Hematocrit 35.3 % (37.0-47.0); Hemoglobin 10.9 g/dL (12.0-15.0); Immature Granulocyte Absolute 0.03 K/mm3 (0.00-0.031); Immature Granulocyte Percent A 0.3 % (0-0.5); Lymphocytes Absolute Auto 1.52 K/mm3 (0.9-3.2); Lymphocytes Percent Auto 14.2 % (18.3-44.2); Mean Corpuscular HGB Conc 30.9 g/dl (32-36); Mean Corpuscular Hemoglobin 29.9 pg (26-34); Mean Corpuscular Volume 96.7 fl (80-100); Monocytes Absolute Auto 0.4 K/mm3 (0.1-0.6); Monocytes Percent Auto 4.1 % (2.6-8.5); Neutrophils Absolute Auto 8.6 K/mm3 (1.3-6.7); Neutrophils Percent Auto 80.3 % (45.5-73.1); Platelet Count Result 180 k/mm3 (150-375); Red Blood Count 3.65 M/mm3 (4.2-5.4); Red Cell Distribution Width 14.6 % (11.5-14.5); White Blood Count 10.7 K/mm3 (4.5-10.0)
[2021-07-09 21:32] LABS: Alanine Aminotransferase 13 U/L (4-35); Albumin Level 3.3 g/dL (3.5-5.1); Alkaline Phosphatase 126 U/L (38-126); Anion Gap 4 mmol/L (8-16); Aspartate Amino Transferase 22 U/L (14-36); Bilirubin,Total < 0.1 mg/dL (0.2-1.3); Blood Urea Nitrogen 24 mg/dL (7-17); Calcium 8.3 mg/dL (8.4-10.2); Carbon Dioxide 30 mmol/L (22-30); Chloride 106 mmol/L (98-107); Estimated Glomerular Filt Rate 53; Glucose 111 mg/dL (65-110); Potassium 4.2 mmol/L (3.4-5.0); Sodium 140 mmol/L (137-145)
--- NOTE | 2021-07-09 23:19 | PC.NURSE ---
called [facility] to request transport. eta 45-60 minutes.
[2021-07-10 00:01] VITALS: BP 117/56; PULSE 70; RESP 15
[2021-07-10 00:02] VITALS: PULSE 72; RESP 15
--- NOTE | 2021-07-10 00:31 | PC.NURSE ---
[facility] here.
== END 2021-07-10 00:45 ==
PROVIDERS: Emergency Provider Emergency Medicine; PCP Nurse Practitioner Family
DX: S00.81XA Abrasion of other part of head, initial encounter (principal); W05.0XXA Fall from non-moving wheelchair, initial encounter; E78.5 Hyperlipidemia, unspecified
CPT/HCPCS: 36415; 70450; 72125; 80053; 85025; 99284

== ENCOUNTER 2021-09-09 16:23 | Emergency (ER) | payer MEDICARE, BC, SELFPAY ==
[2021-09-09] VITALS (27 sets, daily range): BP systolic 123–153; BP diastolic 51–73; PULSE 59–78; RESP 12–18; TEMP 36.4; O2SAT 98–100
--- NOTE | ~2021-09-09 | CT_ITS ---
EXAMINATION: CT abdomen pelvis wo con DATE: 09/09/2021 22:28 INDICATION: hematuria TECHNIQUE: Computed tomography (CT) of the abdomen and pelvis was performed without intravenous contr ast. Automated exposure control and iterative reconstruction technique were employed. The dose-length product was 244.49 mGy-cm. COMPARISON: CT Pelvis 08/22/16. Xray chest 01/03/21 FINDINGS: Lower thorax: Senescent lung changes. Severe coronary artery calcification. Massive hiatal hernia, co ntaining large bowel, mesenteric fat and the entire stomach (which is displaced to the right by the l oops of herniated bowel). Liver: Normal. Biliary/Gallbladder: Gallbladder is collapsed. No bile duct dilation. Spleen: Normal. Pancreas: No mass or duct dilation. Atrophy. Adrenals:No mass. Kidneys: Bilateral cysts. Bilateral moderate hydronephrosis. GI tract: No small or large bowel dilation. Appendix not visualized. Mesentery/Peritoneum: No ascites, mass, or free air. Retroperitoneum: No mass. Pelvis: Marked bladder distention. No obstructing mass or stone detected. Bones/Soft Tissues: Subcutaneous induration and fluid superficial to and slightly inferior to the rig ht ischial tuberosity. No acute osseous finding. Additional Findings: None. IMPRESSION: Marked bladder dilation with bilateral moderate hydronephrosis, of uncertain etiology. Massive hiatal hernia containing the stomach and loops of large bowel. No current evidence of obstruction. Possible right ischial tuberosity decubitus ulcer. Reviewed, dictated and finalized at location K. IMPRESSION: Marked bladder dilation with bilateral moderate hydronephrosis, of uncertain et iology. Massive hiatal hernia containing the stomach and loops of large bowel. No current evidence of obstruction. Possible right ischial tuberosity decubitus ulcer.
--- NOTE | 2021-09-09 19:14 | PC.NURSE ---
BSSR from Cristi PHELPS. Pt resting on stretcher. Pt has bed alarm on. Monitoring pt at this time.
[2021-09-09 19:57] LABS: Basophils Percent Auto 0.4 % (0.2-1.2); Eosinophils Absolute Auto 0.1 K/mm3 (0-0.3); Eosinophils Percent Auto 0.5 % (0-4.4); Hematocrit 36.3 % (37.0-47.0); Hemoglobin 11.1 g/dL (12.0-15.0); Immature Granulocyte Absolute 0.04 K/mm3 (0.00-0.031); Immature Granulocyte Percent A 0.4 % (0-0.5); Lymphocytes Absolute Auto 1.46 K/mm3 (0.9-3.2); Lymphocytes Percent Auto 15.6 % (18.3-44.2); Mean Corpuscular HGB Conc 30.6 g/dl (32-36); Mean Corpuscular Hemoglobin 28.9 pg (26-34); Mean Corpuscular Volume 94.5 fl (80-100); Mean Platelet Volume 9.3 fl (7.4-10.4); Monocytes Absolute Auto 0.4 K/mm3 (0.1-0.6); Monocytes Percent Auto 4.5 % (2.6-8.5); Neutrophils Absolute Auto 7.3 K/mm3 (1.3-6.7); Neutrophils Percent Auto 78.6 % (45.5-73.1); Platelet Count Result 277 k/mm3 (150-375); Red Blood Count 3.84 M/mm3 (4.2-5.4); Red Cell Distribution Width 14.6 % (11.5-14.5); White Blood Count 9.4 K/mm3 (4.5-10.0)
[2021-09-09 20:00] LABS: Appearance Urine Cloudy (Clear); Bilirubin Urine Negative (Negative); Blood Urine 3+ (Negative); Color Urine Yellow (Yellow); Glucose Urine UA Negative (Negative); Ketones Urine Negative (Negative); Leukocyte Esterase Ur 2+ LEU/UL (Negative); Nitrate Urine Negative (Negative); Protein Urine 2+ mg/dL (Negative); Urobilinogen Urine 0.2 mg/dL (<2.0)
--- NOTE | 2021-09-09 20:01 | ED.FEMALEGU ---
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 Patient with known UTI. Patient started on Augmentin on 09/02/2021. No reports of fevers. History is limited. Related Data Home Medications Medication Instructions Recorded Confirmed aspirin 81 mg tablet,delayed 81 mg PO DAILY 07/04/19 01/03/21 release multivitamin 1 cap PO DAILY 07/04/19 01/03/21 acetaminophen 500 mg PO QID PRN 01/03/21 01/03/21 fluoxetine [Prozac] 10 mg PO DAILY 09/09/21 Allergies Allergy/AdvReac Type Severity Reaction Status Date / Time No Known Allergies Allergy Verified 10/14/19 13:01 Review of Systems Review of Systems: ROS unobtainable: Yes unobtainable due to medical condition PMFSH Past Medical History Medical History (Updated 09/09/21 @ 23:50 by Jaspreet Bustillo MD) Essential hypertension Expressive aphasia History of CVA with residual deficit Hyperlipidemia Major depression, chronic Family History Family History Other Cerebrovascular accident Social History Social History Smoking status: Never smoker Alcohol intake: never Substance use type: does not use Gender identity (if verbalized by the patient): Female Exam Narrative: GENERAL: Chronically ill-appearing, underweight, and in no acute distress. HEAD: Normocephalic, atraumatic. EYES: PERRL and EOMI. CHEST: Clear to auscultation. No respiratory distress. HEART: Regular rate and rhythm. Normal peripheral pulses. ABDOMEN: Soft, nontender, nondistended. EXTREMITIES: Normal range of motion. No edema. SKIN: Warm, dry, no rash. No decubitus ulcers. NEURO: Awake and alert. Not oriented. Course Course Emergency Course: Patient with urinary retention. Initial straight cath resulted in 700 mL of urine return. After placement of Jay catheter an additional 1200 mL came out. No blood clots. Suspect urine is more reflective of distended bladder as opposed to acute infection. Will send for culture and continue patient's amoxicillin. Discharged back to [facility]. Vital Signs Vital signs: Vital Signs Temperature 97.6 F 09/09/21 16:56 Pulse Rate 78 09/09/21 16:56 Respiratory Rate 18 09/09/21 16:56 Blood Pressure 125/70 09/09/21 16:56 Pulse Oximetry 100 09/09/21 16:56 Temperature 97.6 F 09/09/21 16:56 Pulse Rate 66 09/09/21 23:31 Respiratory Rate 12 09/09/21 23:31 Blood Pressure 136/67 09/09/21 23:31 Pulse Oximetry 98 09/09/21 22:47 MDM - Female Genitourinary Lab Data Result diagrams: 09/09/21 19:48 09/09/21 19:48 Labs: Lab Results 09/09/21 09/09/21 09/09/21 Range/Units 19:48 19:48 19:48 WBC 9.4 (4.5-10.0) K/mm3 RBC 3.84 L (4.2-5.4) M/mm3 Hgb 11.1 L (12.0-15.0) g/dL Hct 36.3 L (37.0-47.0) % MCV 94.5 (80-100) fl MCH 28.9 (26-34) pg MCHC 30.6 L (32-36) g/dl RDW 14.6 H (11.5-14.5) % Plt Count 277 D (150-375) k/mm3 MPV 9.3 (7.4-10.4) fl Immature Gran % (Auto) 0.4 (0-0.5) % Neut % (Auto) 78.6 H (45.5-73.1) % Lymph % (Auto) 15.6 L (18.3-44.2) % Redwood % (Auto) 4.5 (2.6-8.5) % Eos % (Auto) 0.5 (0-4.4) % Baso % (Auto) 0.4 (0.2-1.2) % Lymph # (Auto) 1.46 (0.9-3.2) K/mm3 Redwood # (Auto) 0.4 (0.1-0.6) K/mm3 Eos # (Auto) 0.1 (0-0.3) K/mm3 Baso # (Auto) 0.0 (0.0-0.1) K/mm3 Abs Immat Gran (auto) 0.04 H (0.00-0.031) K/mm3 Absolute Neuts (auto) 7.3 H (1.3-6.7) K/mm3 Absolute Nucleated RBC 0.0 (0.0-0.012) K/mm3 Nucleated RBC % 0.0 (0.0-0.2) % PT 19.6 H (11.1-14.7) Seconds INR 1.7 APTT 35.5 (22.3-36.8) SECON
[2021-09-09 20:06] LABS: Anion Gap 5 mmol/L (8-16); Blood Urea Nitrogen 35 mg/dL (7-17); Calcium 8.7 mg/dL (8.4-10.2); Carbon Dioxide 26 mmol/L (22-30); Chloride 108 mmol/L (98-107); Estimated CRCL calculation 18 ml/min; Estimated Glomerular Filt Rate 43; Glucose 109 mg/dL (65-110); Potassium 4.2 mmol/L (3.4-5.0); Sodium 139 mmol/L (137-145)
[2021-09-09 20:07] LABS: Bacteria Urine Trace /hpf; RBC Urine >75 /hpf (0-2); WBC Clumps Urine Present /HPF; WBC Urine >75 /hpf
[2021-09-09 20:10] LABS: Add Urine Microscopic? YES
[2021-09-09 20:11] LABS: INR 1.7; Prothrombin Time 19.6 Seconds (11.1-14.7)
[2021-09-09 20:12] LABS: Partial Thromboplastin Time 35.5 SECONDS (22.3-36.8)
--- NOTE | 2021-09-09 20:58 | PC.NURSE ---
attempted to reach [facility] in [place] multiple times to see if pt has had a urine culture performed. No answer will continue to attempt to reach.
[2021-09-09] MEDS: SODIUM CHLORIDE 0.9% IV 1,000 ML 999 ML IV CONT (21:02)
--- NOTE | 2021-09-09 23:49 | PC.NURSE ---
ERP and RN checked pts hips for wounds. No wounds noted.
[2021-09-10] VITALS (27 sets, daily range): BP systolic 101–136; BP diastolic 53–66; PULSE 56–65; RESP 9–18; O2SAT 93–99
--- NOTE | 2021-09-10 01:54 | PC.NURSE ---
RN attempted to call report to [facility] in [place]/ [facility] place no answer. Message left to call back. Will call back.
--- NOTE | 2021-09-10 02:08 | PC.NURSE ---
called [facility] for ETA update. ETA [id number]
--- NOTE | 2021-09-10 02:59 | PC.NURSE ---
[facility] here.
== END 2021-09-10 03:09 ==
PROVIDERS: Emergency Provider Emergency Medicine
DX: R33.9 Retention of urine, unspecified (principal); I69.920 Aphasia following unspecified cerebrovascular disease; N39.0 Urinary tract infection, site not specified; I10 Essential (primary) hypertension; E78.5 Hyperlipidemia, unspecified; Z79.82 Long term (current) use of aspirin; F32.9 Major depressive disorder, single episode, unspecified; N13.30 Unspecified hydronephrosis; K44.9 Diaphragmatic hernia without obstruction or gangrene
CPT/HCPCS: 36415; 74176; 80048; 81001; 85025; 85610; 85730; 87086; 96360; 99284; J7030

== ENCOUNTER 2021-09-10 14:36 | Emergency (ER) | payer MEDICARE, BC, SELFPAY ==
[2021-09-10 14:35] VITALS: BP 131/73; PULSE 88; RESP 18; TEMP 36.9; O2SAT 94
--- NOTE | 2021-09-10 15:11 | PC.NURSE ---
This RN called [facility] and spoke to nurse Zelda regarding pt symptoms and POC. Per Dr Armendariz, Zelda was notified pt was treated here for a UTI so it is common to see blood in the urine. Jay is patent and bladder scan neg for residual or blockages. Pt is to cont RX'd antibiotic and will return to NH. If symptoms increase or continue, Dr Armendariz recommends pt see's a urologist.
--- NOTE | 2021-09-10 15:26 | ED.FEMALEGU ---
HPI - Female Genitourinary General Chief complaint: Urogenital-Female Stated complaint: hematuria with indwelling martinez Time Seen by Provider: 09/10/21 14:43 Source: EMS, RN notes reviewed and old records reviewed History of Present Illness HPI Narrative: Patient brought in for hematuria in her Martinez. She was seen yesterday for hematuria is found to have urinary retention. Patient has a known UTI and is currently on antibiotics. Patient continued to have hematuria with the Martinez in place and was referred back to the ER for further evaluation. Patient is nonverbal nurse to fill has not noted any change in her baseline mental status. Patient not had any recent fevers, nausea, vomiting, diarrhea Related Data Home Medications Medication Instructions Recorded Confirmed aspirin 81 mg tablet,delayed 81 mg PO DAILY 07/04/19 01/03/21 release multivitamin 1 cap PO DAILY 07/04/19 01/03/21 acetaminophen 500 mg PO QID PRN 01/03/21 01/03/21 fluoxetine [Prozac] 10 mg PO DAILY 09/09/21 Allergies Allergy/AdvReac Type Severity Reaction Status Date / Time No Known Allergies Allergy Verified 09/10/21 14:45 Review of Systems Review of Systems: ROS unobtainable: Yes unobtainable due to medical condition (Patient is nonverbal at baseline) PMFSH Past Medical History Medical History Essential hypertension Expressive aphasia History of CVA with residual deficit Hyperlipidemia Major depression, chronic Family History Family History Other Cerebrovascular accident Social History Social History Smoking status: Never smoker Alcohol intake: never Substance use type: does not use Gender identity (if verbalized by the patient): Female Exam Narrative: GENERAL: Well-appearing, well-nourished, and in no acute distress. HEAD: Normocephalic, atraumatic. EYES: PERRLA and EOMI. ENT: Nares clear, no rhinorrhea or epistaxis. Mucous membranes moist. NECK: Supple. No masses. No JVD CHEST: Clear to auscultation. No respiratory distress. No wheezes rales or rhonchi HEART: Regular rate and rhythm. No murmur heard. Normal peripheral pulses. ABDOMEN: Soft, nontender, nondistended EXTREMITIES: Normal range of motion. No edema. SKIN: Warm, dry, no rash. NEURO: No focal deficits. Alert PSYCH: Normal mood and affect. Course Reevaluation(s) Reevaluation #1: Patient resting comfortably patient is appropriate for continued outpatient antibiotics and follow-up with urology if hematuria persists Date: 09/10/21 Time: 15:28 Vital Signs Vital signs: Vital Signs Temperature 36.9 C 09/10/21 14:35 Pulse Rate 88 09/10/21 14:35 Respiratory Rate 18 09/10/21 14:35 Blood Pressure 131/73 09/10/21 14:35 Pulse Oximetry 94 09/10/21 14:35 Temperature 36.9 C 09/10/21 14:35 Pulse Rate 79 09/10/21 15:41 Respiratory Rate 17 09/10/21 15:41 Blood Pressure 122/76 09/10/21 15:41 Pulse Oximetry 93 09/10/21 15:41 MDM - Female Genitourinary MDM Narrative Medical decision making narrative: H&P as above, vss, pt looks clinically well, exam with nonacute abdomen, prior labs and imaging reviewed, additional labs/img considered, symptomatic relief available as needed, on reevaluation pt continues to looks clinically well. Suspect hematuria related to urinary tract infection, dns significant hemorrhage, pyelonephritis, severe sepsis, severe dehydration. plan to tx/monitor as op w/ pcm f/u findings/plan discussed with pt, pt agree/comfortable with plan, return precautions given Lab Data Labs: Urine Characteristics Clear Discharge Plan Discharge Clinical Impression: Hematuria Qualifiers: Hematuria type: gross Qualified Code(s): R31.0 - Gross hematuria Patient Disposition: [facility] Long-Term/Asst Li
[2021-09-10 15:41] VITALS: BP 122/76; PULSE 79; RESP 17; O2SAT 93
--- NOTE | 2021-09-10 19:25 | PC.NURSE ---
EMS not at ED at this point, report given to Jennifer PEHLPS who is resuming care for pt at this time.
--- NOTE | 2021-09-10 19:46 | PC.NURSE ---
[facility] arrived at 1944.
== END 2021-09-10 19:50 ==
PROVIDERS: Emergency Provider Emergency Medicine
DX: R31.0 Gross hematuria (principal); N39.0 Urinary tract infection, site not specified; I10 Essential (primary) hypertension; E78.5 Hyperlipidemia, unspecified; I69.920 Aphasia following unspecified cerebrovascular disease; F32.A Depression, unspecified; Z79.82 Long term (current) use of aspirin
CPT/HCPCS: 99283

== ENCOUNTER 2022-11-07 18:42 | Emergency (ER) | payer MEDICARE, BC, SELFPAY ==
--- NOTE | ~2022-11-07 | CT_ITS ---
EXAMINATION: CT brain wo con DATE: 11/07/2022 19:51 INDICATION: fall . TECHNIQUE: Computed tomography (CT) of the head was performed without intravenous contrast. The mA wa s adjusted according to patient size. Iterative reconstruction technique was employed. The dose-lengt h product was 681.00 mGy-cm. COMPARISON: 07/09/2021. FINDINGS: Mild motion artifact. No acute intracranial hemorrhage or extra-axial fluid collection. No hydrocephalus, mass, or herniation. No acute ischemic infarct. Unremarkable dural venous sinus attenuation. No acute osseous abnormality. Left scalp contusion Nodular mucosal thickening in the left medullary sinus near the ostiomeatal unit and in the anterior/ middle ethmoid air cells, the remaining aerated spaces are clear. Moderate atrophy and severe chronic white matter change. Atherosclerotic intracranial calcification. Large area of encephalomalacia in the left MCA territory. Chronic right thalamic lacunar infarcts. Le ft tentorial meningioma. IMPRESSION: No acute intracranial process. Reviewed, dictated and finalized at location K.
--- NOTE | ~2022-11-07 | CT_ITS ---
EXAMINATION: CT cervical spine wo con DATE: 11/07/2022 19:51 INDICATION: fall TECHNIQUE: Computed tomography (CT) of the cervical spine was performed without intravenous contrast. Automated exposure control and iterative reconstruction technique were employed. The dose-length pro duct was 123.15 mGy-cm. COMPARISON: 07/09/2021. FINDINGS: Vertebral Body Alignment: Intact. . Craniocervical and atlantoaxial alignment: Moderate degenerative change with pannus formation. Alignm ent intact. Osseous structures/fracture: No evidence of a lytic or blastic process in the visualized spine. No e vidence of acute fracture. . Cervical soft tissues: The paraspinal soft tissues planes are maintained. Prior left thyroid lobectom y. Moderate aortic unfolding and ectasia. Degenerative changes: Multilevel degenerative disc and facet changes. Multilevel facet and vertebral body fusions. Multilevel bilateral severe neural foraminal narrowing. No severe central canal narrowi ng. IMPRESSION: No acute fracture or traumatic malalignment in the cervical spine. Reviewed, dictated and finalized at location K.
[2022-11-07 18:40] VITALS: BP 128/86; PULSE 83; RESP 16; TEMP 36.5; O2SAT 96
--- NOTE | 2022-11-07 19:17 | ED.GENADULT ---
HPI - General Adult General Chief complaint: Fall <Lew Richardson PA-C - Last Filed: 11/07/22 20:49> Stated complaint: Fall <Lew Richardson PA-C - Last Filed: 11/07/22 20:49> Time Seen by Provider: 11/07/22 18:51 <Lew Richardson PA-C - Last Filed: 11/07/22 20:49> Source: other (Hospice nurse) <Lew Richardson PA-C - Last Filed: 11/07/22 20:49> Mode of arrival: EMS <ISMAEL Aguilera Last Filed: 11/07/22 20:49> Limitations: other <Lew Richardson PA-C - Last Filed: 11/07/22 20:49> History of Present Illness HPI narrative: This is an 87-year-old female with PMH of dementia, CVA who is on hospice and presenting to the ED for fall today at her facility. They noted a hematoma and sent her here. Spoke with the nurse at the facility and they state that it is their protocol to send to the ER for any follow-up with evidence of head trauma. I am unable to obtain any further history from the patient. She is nonverbal. Per triage note, patient here via EMS from [facility], patient was being pushed in a wheelchair and fell forward out of the wheelchair and hit her head. Staff denies LOC. C-collar in place. Patient's baseline mentality is nonverbal. Patient presents with small abrasion with swelling noted to the right forehead. No bleeding noted. Patient is not on any blood thinners. Blood glucose 141 per EMS. Patient is hospice and DNR. <Lew Richardson PA-C - Last Filed: 11/07/22 20:49> Related Data Home medications: Home Medications Medication Instructions Recorded Confirmed aspirin 81 mg tablet,delayed 81 mg PO DAILY 07/04/19 01/03/21 release (Adult Aspirin Regimen) multivitamin 1 cap PO DAILY 07/04/19 01/03/21 acetaminophen 500 mg tablet 500 mg PO QID PRN Pain 01/03/21 01/03/21 fluoxetine 20 mg capsule (Prozac) 10 mg PO DAILY 09/09/21 <ISMAEL Aguilera Last Filed: 11/07/22 20:49> Allergies/adverse reactions: Allergies Allergy/AdvReac Type Severity Reaction Status Date / Time No Known Allergies Allergy Verified 09/10/21 14:45 <Lew Richardson PA-C - Last Filed: 11/07/22 20:49> [facility] Past Medical History Medical History: Medical History Essential hypertension Expressive aphasia History of CVA with residual deficit Hyperlipidemia Major depression, chronic <Lew Richardson PA-C - Last Filed: 11/07/22 20:49> Family History Family History: Family History Other Cerebrovascular accident <ISMAEL Aguilera Last Filed: 11/07/22 20:49> Social History Social History: Social History Smoking status: Never smoker Alcohol intake: never Substance use type: does not use Gender identity (if verbalized by the patient): Female <Lew Richardson PA-C Last Filed: 11/07/22 20:49> Exam Narrative: GENERAL: Presents in c-collar. Resting comfortably in bed. HEAD: Small hematoma to the right frontal scalp. No tenderness. EYES: PERRLA and EOMI. ENT: Nares clear, no rhinorrhea or epistaxis. Mucous membranes moist. Oropharynx without tonsillar hypertrophy exudate or other lesions. NECK: Supple. No adenopathy or masses. CHEST: No respiratory distress. Clear to auscultation. No wheezes rales or rhonchi HEART: Regular rate and rhythm. No murmur heard. Normal peripheral pulses. ABDOMEN: Soft, nontender, nondistended, normal active bowel sounds. MSK: Moves extremities spontaneously. SKIN: Small swelling to the right side of the head. NEURO: She is nonverbal at baseline. Tracks my movements with her eyes but does not respond to my questions. PSYCH: Normal mood and affect. <ISMAEL Aguilera Last Filed: 11/07/22 20:49> Course [employer]ARD MAKER/PA Physician Supervision For this patient encounter, I reviewed the LARD MAKER or PA documentation, treatment plan, and medical decisio
== END 2022-11-07 22:55 ==
PROVIDERS: Emergency Provider Physician Assistant
DX: S00.81XA Abrasion of other part of head, initial encounter (principal); F03.90 Unspecified dementia, unspecified severity, without behavioral disturbance, psychotic disturbance, mood disturbance, and anxiety; I10 Essential (primary) hypertension; E78.5 Hyperlipidemia, unspecified; Z86.73 Personal history of transient ischemic attack (TIA), and cerebral infarction without residual deficits; W05.0XXA Fall from non-moving wheelchair, initial encounter; Y92.129 Unspecified place in nursing home as the place of occurrence of the external cause
CPT/HCPCS: 70450; 72125; 99284